=== PATIENT | male | born 1990 | race Caucasian/White ===

== ENCOUNTER 2020-05-06 22:43 | Emergency (ER) | payer SELFPAY ==
--- NOTE | 2020-05-06 23:18 | RAD ---
XR Finger(s) Rt Min 2 View INDICATION: Right finger injury while at work; compressed the finger between 2 kegs COMPARISON: None. FINDINGS: Bones: There is a transverse oriented, minimally displaced distal phalangeal tuft fracture of the rig ht long finger. Soft tissues: Within normal limits. Joints: The visualized knee and hip appear within normal limits. IMPRESSION: Minimally displaced distal phalangeal tuft fracture of the right long finger.
== END 2020-05-07 00:14 | disposition home or self-care (01) ==
LOC: ERS 22:43
DX: S62.632A Displaced fracture of distal phalanx of right middle finger, initial encounter for closed fracture (principal); W23.1XXA Caught, crushed, jammed, or pinched between stationary objects, initial encounter
CPT/HCPCS: 11740